=== PATIENT | female | born 1990 ===

== ENCOUNTER 2016-10-06 16:55 | Emergency (ER) | payer BC, OTHER ==
--- NOTE | 2016-10-06 19:14 | EDPHY ---
H & P Time Seen by Provider: 10/06/16 19:05 HPI/ROS: CHIEF COMPLAINT: Epigastric and right upper quadrant pain x2 days HISTORY OF PRESENT ILLNESS: 26-year-old female with no prior history of abdominal surgeries complaining of 2 days of intermittent epigastric and right upper quadrant abdominal pain which tends to occur primarily with half are after eating food. She last ate pizza at 2:00 p.m. today and 30 minutes later experienced epigastric right upper quadrant pain. She also notes that she has been drinking heavier than usual amount of alcohol over the past few days. No radiation pain. No nausea or vomiting. No syncope or near syncope. No urinary complaints. No melena or hematochezia. Bowel movements normal. PRIMARY CARE PROVIDER: no primary care provider REVIEW OF SYSTEMS: A ten point review of systems was performed and is negative with the exception of the items mentioned in the HPI PAST MEDICAL & SURGICAL HISTORY: No pertinent medical or surgical history SOCIAL HISTORY: Heavier than usual alcohol use the past few days . intermittent tobacco use PHYSICAL EXAM (Prior to examination, patient consented to physical exam, hands were washed and my usual and customary physical exam procedures followed) 1) GENERAL: Well-developed, well-nourished, alert and oriented. Appears to be in no acute distress. 2) HEAD: Normocephalic, atraumatic 3) HEENT: Pupils equal, round, reactive to light bilaterally. Sclera anicteric. 4) NECK: Full range of motion, no meningeal signs. 5) LUNGS: Clear auscultation bilaterally, no wheezes, no rhonchi, no retractions. 6) HEART: Regular rate and rhythm, no murmur, no heave, no gallop. 7) ABDOMEN: No guarding, tender to palpation epigastrium and right upper quadrant, negative McBurney's, negative Rovsing's, negative peritoneal sign, 8) MUSCULOSKELETAL: Moving all extremities, no focal areas of tenderness, no obvious trauma. No peripheral edema or discoloration. 9) BACK: No CVA tenderness, no midline vertebral tenderness, no fluctuance, no step-off, no obvious trauma, no visual or palpable abnormality. 10) SKIN: No rash, no petechiae. 11) Psychiatric: Patient is oriented X 3, there is no agitation. DIFFERENTIAL DIAGNOSIS: In no particular order, including but not limited to biliary colic, cholecystitis, peptic ulcer disease, pancreatitis, and gastroenteritis. This is a partial list of diagnoses considered. These considerations are based on history, physical exam, past history and reassessment. - Personal History Current Tetanus Diphtheria and Acellular Pertussis (TDAP): No Tetanus Vaccine Date: unsure - Medical/Surgical History Hx Asthma: No Hx Chronic Respiratory Disease: No Hx Diabetes: No Hx Cardiac Disease: No Hx Renal Disease: No Hx Cirrhosis: No Hx Alcoholism: No Hx HIV/AIDS: No Hx Splenectomy or Spleen Trauma: No Other PMH: denies - Social History Smoking Status: Current some day smoker Constitutional: Initial Vital Signs Temperature (C) 37.1 C 10/06/16 17:14 Heart Rate 75 10/06/16 17:14 Respiratory Rate 14 10/06/16 17:14 Blood Pressure 139/79 H 10/06/16 17:14 O2 Sat (%) 96 10/06/16 17:14 O2 Delivery Mode Room Air Allergies/Adverse Reactions: No Known Allergies Allergy (Unverified 10/06/16 17:13) Home Medications: Medication Instructions Recorded Pantoprazole Sodium [Protonix 40mg 40 mg PO DAILY #30 tab 10/06/16 (RX)] Medical Decision Making - Diagnostics Imaging: Sonography Limited to the Right Upper Quadrant of the Abdomen CLINICAL HISTORY: 26-year-old female in the ED with epigastric and right upper quadrant pain for 3 days. Rule out cholelithiasis. TECHNIQUE: A curvilinear 5 MHz transducer was used to sonographically evaluate the right upper quadrant of the abdomen. Color Doppler was used. COMPARISON STUDY: None. FINDINGS: The pancreatic contour is normal. The abdominal aorta is normal in size, and tapers normally (the midportion of the abdominal aorta is obscured by bowel gas). The visualized IVC is normal in caliber. The hepatic vein trifurcation is normal. The main portal vein is patent. The liver is normal in size, measuring 16.6 cm along the right midaxillary line. There is no intra or extrahepatic bile duct dilatation. The common bile duct measures 2.6 mm. The gallbladder is moderately distended, and there is no evidence of cholelithiasis, sludge, polyp , wall thickening, pericholecystic fluid, or sonographic Floyd sign. The gallbladder wall thickness is 1.2 mm. The right kidney is lower limits of normal in size, with a normal shape and contour , and a normal renal cortical thickness (1.2 cm), and no focal renal mass or hydronephrosis, and measures 8.9 x 4.3 x 5.1. There is no ascites or right pleural effusion. IMPRESSION: Normal study. Findings and recommendations were discussed with Kayla Lockhart. LEEANN at 19:43 , on 10/06/2016. Dictated By: Daren Levi MD Images reviewed by myself ED Course/Re-evaluation: 8:00 p.m.: Re-evaluation. Discussed her negative ultrasound, discussed her laboratory results. Discussed possible etiologies for symptoms. Doubt acute cholecystitis. Doubt acute pancreatitis. Doubt bowel obstruction. Doubt acute appendicitis as she has no pain in the right lower quadrant. I think a trial of proton pump inhibitor is appropriate as well as dietary modification . I recommend follow up with Gastroenterology and provided her with this referral information. She feels comfortable with this plan and feels comfortable being discharged. All questions and concerns addressed by myself. - Data Points Laboratory Results: Laboratory Results 10/06/16 19:15 10/06/16 19:15 10/06/16 10/06/16 10/06/16 19:15 19:15 19:15 WBC 10.48 10^3/uL H 10^3/uL (3.80-9.50) RBC 5.10 10^6/uL 10^6/uL (4.18-5.33) Hgb 14.3 g/dL g/dL (12.6-16.3) Hct 42.6 % % (38.0-47.0) MCV 83.5 fL fL (81.5-99.8) MCH 28.0 pg pg (27.9-34.1) MCHC 33.6 g/dL g/dL (32.4-36.7) RDW 12.9 % % (11.5-15.2) Plt Count 363 10^3/uL 10^3/uL (150-400) MPV 8.7 fL fL (8.7-11.7) Neut % (Auto) 66.9 % % (39.3-74.2) Lymph % (Auto) 21.1 % % (15.0-45.0) Davis % (Auto) 5.2 % % (4.5-13.0) Eos % (Auto) 5.8 % % (0.6-7.6) Baso % (Auto) 0.7 % % (0.3-1.7) Nucleat RBC Rel Count 0.0 % % (0.0-0.2) Absolute Neuts (auto) 7.01 10^3/uL H 10^3/uL (1.70-6.50) Absolute Lymphs (auto) 2.21 10^3/uL 10^3/uL (1.00-3.00) Absolute Monos (auto) 0.55 10^3/uL 10^3/uL (0.30-0.80) Absolute Eos (auto) 0.61 10^3/uL H 10^3/uL (0.03-0.40) Absolute Basos (auto) 0.07 10^3/uL 10^3/uL (0.02-0.10) Absolute Nucleated RBC 0.00 10^3/uL 10^3/uL (0-0.01) Immature Gran % 0.3 % % (0.0-1.1) Immature Gran # 0.03 10^3/uL 10^3/uL (0.00-0.10) Sodium 139 mEq/L mEq/L (134-144) Potassium 4.2 mEq/L mEq/L (3.5-5.2) Chloride 107 mEq/L mEq/L (97-110) Carbon Dioxide 22 mEq/l mEq/l (22-31) Anion Gap 10 mEq/L mEq/L (8-16) BUN 13 mg/dL mg/dL (7-23) Creatinine 0.8 mg/dL mg/dL (0.6-1.0) Estimated GFR > 60 Glucose 80 mg/dL mg/dL (70-100) Calcium 10.1 mg/dL mg/dL (8.5-10.4) Total Bilirubin 0.5 mg/dL mg/dL (0.1-1.4) Conjugated Bilirubin 0.3 mg/dL mg/dL (0.0-0.5) Unconjugated Bilirubin 0.2 mg/dL mg/dL (0.0-1.1) AST 28 IU/L IU/L (14-46) ALT 40 IU/L IU/L (9-52) Alkaline Phosphatase 88 IU/L IU/L (38-126) Total Protein 7.6 g/dL g/dL (6.3-8.2) Albumin 4.2 g/dL g/dL (3.5-5.0) Lipase 95.0 IU/L IU/L (23-300) Beta HCG, Qual NEGATIVE Departure - Departure Disposition: Home, Routine, Self-Care Clinical Impression: Epigastric pain Condition: Fair Instructions: Abdominal Pain (ED) Additional Instructions: Seek immediate medical attention if you develop new or worsening symptoms, if you develop fevers, chills, inability to tolerate oral intake or any other symptoms that concerns you. Avoid high fat foods, alcohol, caffeine, spicy foods, and similar Referrals: Gerhard Hinson MD [Medical Doctor] - 5-7 days, call for appt. (Dr. Gerhard Hinson is a meal cooker) Prescriptions: Pantoprazole Sodium [Protonix 40mg (RX)] 40 mg PO DAILY #30 tab
[2016-10-06 19:25] LABS: % IMMATURE GRANULYOCYTES 0.3 % (0.0-1.1); ABSOLUTE IMMATURE GRANULOCYTES 0.03 10^3/uL (0.00-0.10); ADD DIFF? NO; ADD MORPH? NO; ADD SCAN? NO; ATYPICAL LYMPHOCYTE FLAG 10 (0-99); FRAGMENT RBC FLAG 0 (0-99); HEMATOCRIT 42.6 % (38.0-47.0); HEMOGLOBIN 14.3 g/dL (12.6-16.3); LEFT SHIFT FLG 0 (0-99); LIPEMIA HEMOLYSIS FLAG 80 (0-99); MEAN CELL HEMOGLOBIN CONCENTR. 33.6 g/dL (32.4-36.7); MEAN CELL VOLUME 83.5 fL (81.5-99.8); MEAN PLATELET VOLUME 8.7 fL (8.7-11.7); PLATELET CLUMPS FLAG 10 (0-99); PLATELET COUNT 363 10^3/uL (150-400); RED CELL DISTRIBUTION WIDTH 12.9 % (11.5-15.2)
[2016-10-06 19:43] LABS: ALANINE AMINOTRANSFERASE 40 IU/L (9-52); ALBUMIN 4.2 g/dL (3.5-5.0); ALKALINE PHOSPHATASE 88 IU/L (38-126); ANION GAP 10 mEq/L (8-16); ASPARTATE AMINOTRANSFERASE 28 IU/L (14-46); BILIRUBIN,TOTAL 0.5 mg/dL (0.1-1.4); BILIRUBIN-CONJUGATED 0.3 mg/dL (0.0-0.5); BILIRUBIN-UNCONJUGATED 0.2 mg/dL (0.0-1.1); CALCIUM 10.1 mg/dL (8.5-10.4); CARBON DIOXIDE 22 mEq/l (22-31); CHLORIDE 107 mEq/L (97-110); CREATININE 0.8 mg/dL (0.6-1.0); GLOMERULAR FILTRATION RATE > 60; GLUCOSE 80 mg/dL (70-100); POTASSIUM 4.2 mEq/L (3.5-5.2); SODIUM 139 mEq/L (134-144); TOTAL PROTEIN 7.6 g/dL (6.3-8.2)
[2016-10-06 20:13] VITALS: BP 118/65; PULSE 59; RESP 20; TEMP 98.2; O2SAT 98
== END 2016-10-06 20:14 | disposition home or self-care (01) ==
LOC: CED 16:55
DX: R10.13 Epigastric pain (principal); F17.200 Nicotine dependence, unspecified, uncomplicated